=== PATIENT | female | born 1970 | race Caucasian/White ===

== ENCOUNTER 2020-10-06 12:40 | Outpatient (REF) | payer OTHER, SELFPAY ==
[2020-10-06 13:03] LABS: COVID-19 Test Negative (Negative)
== END 2020-10-06 12:41 | disposition home or self-care (01) ==
LOC: HO.EMPCOV 12:40
PROVIDERS: Visit Provider Internal Medicine
DX: Z20.828 Contact with and (suspected) exposure to other viral communicable diseases (principal)
CPT/HCPCS: 87635; C9803

== ENCOUNTER 2023-09-17 10:41 | Outpatient (AMB) | payer OTHER, SELFPAY ==
[2023-09-17 11:05] VITALS: BP 122/80; PULSE 60; O2SAT 94; BMI 24.2
--- NOTE | 2023-09-17 11:05 | MHC.PC.OV ---
Vital Signs 09/17/23 11:05 Height 5 ft 7 in Weight 154 lb 6 oz BMI 24.2 BP 122/80 Blood Pressure Location Lt brachial Position Sitting Pulse 60 Pulse Source Pulse Oximeter Pulse Oximetry (%) 94 Oxygen Delivery Method Room Air Intake Visit Reasons: L eye cataract surgery-10/02 Diagnostics Tech Required: No Accompanied by: Self / Same As Patient Allergies No Known Allergies [No Known Allergies*] Allergy (Verified 09/17/23 11:34) Medication List - Last Reconciled 09/17/23 by Anthony Gaston MD clobetasol 0.05% 1 appl topical BID clobetasol 0.05% sprays topical lorazepam Take 1 tablet 30 minutes before boarding plane (as needed for anxiety). May repeat x 1 dose after 10 to 15 minutes if needed. 2 days Tobacco use date assessed: 09/17/23 Dental Screening Dental Screen Date: 09/17/23 Did you have a dental visit in the last 12 months?: Yes Did you have a dental problem in the last 6 months where you did not have access to dental care?: No Was dental information given to patient?: Patient has dentist HPI L eye cataract surgery-10/02 HPI Details Patient comes in today at the request of Dr. Rola Harmon for a preoperative medical examination for clearance for surgery She is scheduled for cataract extraction / phaco with IOL of the left eye under MAC on 10/02/2023 Patient states that she feels okay Has been experiencing some on and off burning sensation and pain at times over the soles of both her feet lately; notes that her symptoms tend to bother her more at night time and is wondering if she is starting to develop neuropathy and if she is, would like to try to find out the possible causes Was also recently diagnosed with a recurrence of BCC on the left side of her face under her eye where she had a BCC lesion excised from there years ago Is scheduled for surgical excision of the BCC lesion again sometime later this month with dermatology She denies any headaches or dizziness Denies any chest pains, no SOB No nausea/vomiting, no abdominal pain No change in bowel habits noted [facility] Medical History (Updated 09/17/23 @ 11:55 by Anthony Gaston MD) Basal cell carcinoma, face Anxiety Psoriasis Surgical History (Updated 09/17/23 @ 11:55 by Anthony Gaston MD) Status post Mohs surgery for basal cell carcinoma History of right cataract surgery (~2018) Family History Daughter Substance abuse Mother Active asthma Father Diabetes Social History Housing: House Alcohol intake: current Alcohol intake frequency: holidays/special occasions only Patient Tobacco Use Status: Former Tobacco user Second Hand Smoke Exposure: Yes service: No Current occupational status: employed Cognitive needs: No Hearing needs: No Vision needs: Yes Questionnaire PHQ-9 Over the last 2 weeks, how often have you been bothered by any of the following problems? 1. Little interest or pleasure in doing things: several days 2. Feeling down, depressed, or hopeless: several days 3. Trouble falling or staying asleep, or sleeping too much: several days 4. Feeling tired or having little energy: several days 5. Poor appetite or overeating: several days 6. Feeling bad about yourself - or that you are a failure or have let yourself or your family down: several days 7. Trouble concentrating on things, such as reading the newspaper or watching television: not at all 8. Moving or speaking so slowly that other people could have noticed. Or the opposite - being so fidgety or restless that you have been moving around a lot more than usual: not at all 9. Thoughts that you would be better off or of hurting yourself in some way: not at all Total score: 6 Depression Screening Interpretation: Positive Depression Screening Follow-up: Existing condition, Follow-up Visit Requested and Declines treatment Depression Screening Done: Yes 64455 - PHQ-9 Billing: Yes Source: Developed by Drs. Roger Mendez, Emilee Handley, Chito Smith and colleagues, with an educational saloni from [employer]. Thrive Questionnaire Date Thrive assessed: 09/17/23 I am a: Patient What is your living situation today?: I have a steady place to live Within the past 12 months, did the food you bought not last and you didn't have the money to get more?: Never true Within the past 12 months, did you worry whether your food would run out before you got money to buy more?: Never true Do you have trouble paying for medicines?: No Do you have trouble getting transportation to medical appointments?: No Do you have trouble paying your heating and electricity bill?: No Do you have trouble taking care of your child, family member or friend?: No Do you have trouble with day-to-day activities such as bathing, preparing meals, shopping, managing finances, etc.?: No Are you currently unemployed and looking for a job?: No Are you interested in more education?: No Please select the resources that you would like help with: None Currently or been in a relationship where the following occur: no concerns reported AUDIT C Alcohol Use Questionnaire (AUDIT-C) 1. How often do you have a drink containing alcohol?: Monthly or less 2. How many drinks containing alcohol do you have on a typical day when you are drinking?: 1 or 2 3. How often do you have six or more drinks on one occasion?: Never Total Score: 1 Score Reviewed/Action Taken: Yes RAHEEM-7 AMB Questionnaire RAHEEM-7 Date RAHEEM - 7 assessed: 09/17/23 Feeling nervous, anxious, or on edge: 1 = Several days Not being able to stop or control worryin = Several days Worrying too much about different things: 1 = Several days Trouble relaxin = Several days Being so restless that it is hard to sit still: 1 = Several days Becoming easily annoyed or irritable: 1 = Several days Feeling afraid as if something awful might happen: 1 = Several days Total RAHEEM-7 score (0-4 normal; 5-9 mild; 10-14 moderate; 15-21 severe): 7 Source: Developed by Drs. Roger Mendez, Emilee Handley, Chito Smith and colleagues, with an educational saloni from [employer]. Review of Systems Const Denies chills, Reports fatigue, Denies fever(s) and Denies headache(s) Eyes Reports blurry vision (left eye) ENT Denies dysphagia, Denies dizziness, Denies otalgia, Denies headache(s), Denies neck pain, Denies odynophagia and Denies sore throat Card Denies chest pain, Denies palpitations and Denies dyspnea Resp Denies cough and Denies dyspnea GI Denies abdominal pain, Denies constipation, Denies dysphagia, Denies heartburn, Denies diarrhea, Denies nausea, Denies odynophagia and Denies vomiting Denies difficulty voiding, Denies nocturia and Denies dysuria Musc Denies back pain and Denies neck pain Skin/Breast Denies rash Neuro Denies dizziness, Denies headache(s) and Reports paresthesias (on and off, over the soles of both feet - (+) pain at times (see HPI)) Endo Reports fatigue and Denies palpitations Physical exam (Primary Care) Vital Signs: Last Vital Signs Pulse 60 09/17/23 11:05 BP 122/80 09/17/23 11:05 Pulse Ox 94 09/17/23 11:05 Oxygen Delivery Method Room Air 09/17/23 11:05 BMI result Body Mass Index 24.2 Tobacco/Smoking Status: Tobacco use Status Tobacco use date assessed 09/17/23 09/17/23 11:12 Patient Tobacco Use Status Former Tobacco user 09/17/23 11:12 PHQ-9: PHQ-9 Score PHQ-9: Total score 6 09/17/23 11:12 Depression Screening Interpretation: Positive Depression Screening Follow-up: Existing condition, Follow-up Visit Requested and Declines treatment Thrive Assessment: Date of Thrive Assessment Date Thrive assessed 09/17/23 09/17/23 11:12 Currently or been in a relationship where the following occur: no concerns reported Const General: no acute distress and alert Neck Neck: Yes no lymphadenopathy and Yes supple Resp Auscultation: clear to auscultation bilaterally, no rales and no wheezes Cardio Rate: regular rate Rhythm: regular rhythm Heart sounds: no murmurs GI Palpation (GI): Soft to palpation and nontender Auscultation: normal bowel sounds Extrem General: Yes no clubbing, cyanosis or edema Assessment and Plan Assessment & Plan (1) Preoperative examination: Code(s): Z01.818 - Encounter for other preprocedural examination Plan: Patient presents with acceptable risks for planned low cardiac risk procedure She does not have any significant pulmonary or cardiac history and aside from her anemia (for which we will recheck her CBC as it has been a few years now since she had labs done), she is relatively healthy physically and appears medically optimized for cataract surgery (2) Cataract, left eye: Code(s): H26.9 - Unspecified cataract Qualifiers: Cataract type: age-related Age-related cataract type: unspecified Qualified Code(s): H25.9 - Unspecified age-related cataract Plan: She is scheduled for cataract extraction / phaco with IOL of the left eye under MAC on 10/02/[address] Rola Harmon (3) Anemia: Code(s): D64.9 - Anemia, unspecified Qualifiers: Anemia type: unspecified type Qualified Code(s): D64.9 - Anemia, unspecified Plan: Her H/H was at 10.8/35.2 when last checked in May 2020; she also has microcytosis and hypochromia suggestive of iron-deficiency. A normal MCV rules out thalassemia trait Will have her recheck her CBC and also check her iron levels REBEL for follow up (4) Paresthesia: Code(s): R20.2 - Paresthesia of skin Plan: She also reports (+) recurrent symptoms of paresthesia in her feet lately Will send her for some additional labs for further evaluation Plan Patient presents with acceptable risks for planned low cardiac risk procedure She is being sent for some labs for follow up of some previous and recent issues but have reassured patient that these have no bearing at all on her upcoming eye surgery She is currently medically optimized and has no contraindications to undergo cataract surgery of the left eye as planned with Dr. Harmon on 10/02/2023 To return in 6 months for her annual physical examination Orders: Orders Complete Blood Count Auto Diff Today D64.9 - Anemia, unspecified, R20.2 - Paresthesia of skin IRON PROFILE Today D50.9 - Iron deficiency anemia, unspecified, D64.9 - Anemia, unspecified, R20.2 - Paresthesia of skin Comprehensive Met. Panel Today D64.9 - Anemia, unspecified, R20.2 - Paresthesia of skin Vitamin B12 and Folate Today D64.9 - Anemia, unspecified, R20.2 - Paresthesia of skin TSH reflex Free T4 Today R20.2 - Paresthesia of skin Coding Level of Care Code Est Pt Level 4 (17509) Diagnoses Preoperative examination Z01.818 Senile cataract of left eye, unspecified age-related cataract type H25.9 Cataract type: age-related Age-related cataract type: unspecified Anemia, unspecified type D64.9 Anemia type: unspecified type Paresthesia R20.2
== END 2023-09-17 11:53 | disposition home or self-care (01) ==
PROVIDERS: PCP Internal Medicine; Visit Provider Internal Medicine
DX: Z01.818 Encounter for other preprocedural examination (principal); H25.9 Unspecified age-related cataract; D64.9 Anemia, unspecified; R20.2 Paresthesia of skin
CPT/HCPCS: 99214

== ENCOUNTER 2023-09-30 10:46 | Outpatient (REF) | payer OTHER, SELFPAY ==
[2023-09-30 11:10] LABS: MANUAL DIFF FLAG NO
[2023-09-30 11:22] LABS: Basophils Absolute Auto 0.1 X10*3/uL (0.0-0.2); Basophils Percent Auto 0.6 % (0-2); Eosinophils Absolute Auto 0.2 X10*3/uL (0.0-0.4); Eosinophils Percent Auto 2.1 % (0-4); Imm Gran Abs Auto 0.03 X10*3/uL (0.00-0.03); Imm Gran Pct Auto 0.4 % (0.0-0.4); Lymphocytes Absolute Auto 1.3 X10*3/uL (1.2-4.9); Lymphocytes Percent Auto 16.2 % (20-40); Mean Corpuscular HGB Conc 31.7 g/dl (31.0-35.0); Mean Corpuscular Hemoglobin 28.2 pg (27.0-33.0); Mean Corpuscular Volume 88.9 fL (80.0-98.0); Monocytes Absolute Auto 0.5 X10*3/uL (0.1-1.2); Monocytes Percent Auto 6.1 % (2-11); Neutrophils Absolute Auto 6.2 x10*3/uL (2.0-8.3); Neutrophils Percent Auto 74.6 % (45-73); Platelet Count 222 X10*3/uL (160-400); Red Blood Count 4.61 X10*6/uL (4.20-5.50); Red Cell Distribution Width 14.2 % (11.0-16.0); White Blood Count 8.3 X10*3/uL (4.8-10.8)
[2023-09-30 11:51] LABS: Alanine Aminotransferase 16 U/L (0-31); Albumin Level 4.3 g/dL (3.5-5.0); Alkaline Phosphatase 52 U/L (39-117); Anion Gap 10 (12-20); Aspartate Amino Transferase 16 U/L (5-31); Bilirubin Total 0.4 mg/dL (0.0-1.0); Blood Urea Nitrogen 10 mg/dL (9-16); Calcium 9.7 mg/dL (8.4-10.2); Carbon Dioxide 29 mmol/L (22-29); Chloride 109 mmol/L (96-108); Estimated Glomerular Filt Rate > 60; Glucose Random 89 mg/dL (60-115); Iron 74 mcg/dL (30-160); Percent Iron Saturation 25 % (15-50); Potassium 4.3 mmol/L (3.3-5.1); Sodium 144 mmol/L (135-145); Total Iron Binding Capacity 294 mcg/dL (228-428); Total Protein 7.4 g/dL (6.5-8.0); Unsaturated Iron Binding 220 ug/dL
[2023-09-30 12:05] LABS: TSH reflex Free T4 1.16 uIU/mL (0.32-4.0)
[2023-09-30 12:16] LABS: Folate 10.3 ng/mL (> or = 4.0); Vitamin B12 341 pg/mL (200-900)
== END 2023-09-30 10:47 | disposition home or self-care (01) ==
LOC: HO.LAB 10:46
PROVIDERS: PCP Internal Medicine; Visit Provider Internal Medicine
DX: D50.9 Iron deficiency anemia, unspecified (principal); D64.9 Anemia, unspecified; R20.2 Paresthesia of skin
CPT/HCPCS: 36415; 80053; 82607; 82746; 83540; 84443; 85025

== ENCOUNTER → 2023-10-01 07:20 | Outpatient (REF) | payer OTHER, SELFPAY ==
--- NOTE | 2023-10-01 07:24 | ECG_ITS ---
Test Reason : preop Blood Pressure : / mmHG Vent. Rate : 073 BPM Atrial Rate : 073 BPM P-R Int : 122 ms QRS Dur : 074 ms QT Int : 404 ms P-R-T Axes : 031 063 028 degrees QTc Int : 445 ms Sinus rhythm with frequent Premature ventricular complexes Abnormal ECG When compared with ECG of 25-MAR-2020 19:40, Premature ventricular complexes are now Present Nonspecific T wave abnormality no longer evident in Lateral leads Referred By: Anthony Gaston Electronically Signed By:MERRILL NAQVI MD
== END ==
LOC: HO.CARD 07:20
PROVIDERS: PCP Internal Medicine; Visit Provider Internal Medicine
DX: Z01.818 Encounter for other preprocedural examination (principal); R06.00 Dyspnea, unspecified
CPT/HCPCS: 93005

== ENCOUNTER 2024-03-23 10:13 | Outpatient (AMB) | payer OTHER, SELFPAY ==
[2024-03-23 10:20] VITALS: BP 108/68; PULSE 77; O2SAT 98; BMI 24.7
--- NOTE | 2024-03-23 10:20 | A.OFFPC_ITS ---
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 Allergies No Known Allergies [No Known Allergies*] Allergy (Verified 03/23/24 11:06) Medication List - Last Reconciled 03/23/24 by Anthony Gaston MD clobetasol 0.05% 1 appl topical BID clobetasol 0.05% sprays topical Tobacco use date assessed: 03/23/24 Dental Screening Dental Screen Date: 03/23/24 Did you have a dental visit in the last 12 months?: Yes Did you have a dental problem in the last 6 months where you did not have access to dental care?: No Was dental information given to patient?: Patient has dentist HPI pe HPI Details Patient comes in today for her annual physical examination States that she has been experiencing diffuse joint pains for a few months now States that her joints involved include her knees, feet, hands, hips and also her lower back and she is concerned that she may be developing arthritis She relates no Hx of injuries or trauma that may be contributing to her joint pains She is currently babysitting 2 small grandchildren (one being an infant) for her daughter, who works full-time - states that she herself has been out of work for a couple of months now States that she feels okay otherwise She denies any headaches or dizziness Denies any exertional chest pains, no SOB but relates that she gets some recurrent sharp pains every now and then over her left lower rib cage area, especially when she takes deep breaths Does not recall any recent injury or trauma to her left rib or torso No nausea/vomiting, no abdominal pain No change in bowel habits noted She denies any acute urinary symptoms She has never had a screening colonoscopy done in the past and is agreeable to be referred now for one She also has not had annual mammogram done in about 10 years and has not been back to see her sagger preparer at [facility] in a few years [facility] Medical History Basal cell carcinoma, face Anxiety Psoriasis Surgical History Status post Mohs surgery for basal cell carcinoma History of right cataract surgery (~2018) Family History Daughter Substance abuse Mother Active asthma Father Diabetes Social History Housing: House Alcohol intake: current Alcohol intake frequency: holidays/special occasions only Patient Tobacco Use Status: Former Tobacco user Second Hand Smoke Exposure: Yes service: No Current occupational status: employed Cognitive needs: No Hearing needs: No Vision needs: Yes Female Reproductive History Menstrual Age of menopause: 53 Date of Mammogram: 03/09/13 Questionnaire PHQ-9 Over the last 2 weeks, how often have you been bothered by any of the following problems? 1. Little interest or pleasure in doing things: not at all 2. Feeling down, depressed, or hopeless: not at all 3. Trouble falling or staying asleep, or sleeping too much: not at all 4. Feeling tired or having little energy: not at all 5. Poor appetite or overeating: not at all 6. Feeling bad about yourself - or that you are a failure or have let yourself or your family down: not at all 7. Trouble concentrating on things, such as reading the newspaper or watching television: not at all 8. Moving or speaking so slowly that other people could have noticed. Or the opposite - being so fidgety or restless that you have been moving around a lot more than usual: not at all 9. Thoughts that you would be better off or of hurting yourself in some way: not at all Total score: 0 Depression Screening Interpretation: Negative Depression Screening Done: Yes 65195 - PHQ-9 Billing: Yes Source: Developed by Drs. Roger Mendez, Emilee Handley, Chito Smith and colleagues, with an educational saloni from [email or web address]. Thrive Questionnaire Date Thrive assessed: 03/23/24 I am a: Patient What is your living situation today?: I have a steady place to live Within the past 12 months, did the food you bought not last and you didn't have the money to get more?: Never true Within the past 12 months, did you worry whether your food would run out before you got money to buy more?: Never true Do you have trouble paying for medicines?: No Do you have trouble getting transportation to medical appointments?: No Do you have trouble paying your heating and electricity bill?: No Do you have trouble taking care of your child, family member or friend?: No Do you have trouble with day-to-day activities such as bathing, preparing meals, shopping, managing finances, etc.?: No Are you currently unemployed and looking for a job?: No Are you interested in more education?: No Please select the resources that you would like help with: None Currently or been in a relationship where the following occur: no concerns reported THRIVE Score: 0 AUDIT C Alcohol Use Questionnaire (AUDIT-C) 1. How often do you have a drink containing alcohol?: Monthly or less 2. How many drinks containing alcohol do you have on a typical day when you are drinking?: 1 or 2 3. How often do you have six or more drinks on one occasion?: Never Total Score: 1 Score Reviewed/Action Taken: Yes RAHEEM-7 AMB Questionnaire RAHEEM-7 Date RAHEEM - 7 assessed: 03/23/24 Feeling nervous, anxious, or on edge: 0 = Not at all Not being able to stop or control worryin = Not at all Worrying too much about different things: 0 = Not at all Trouble relaxin = Not at all Being so restless that it is hard to sit still: 0 = Not at all Becoming easily annoyed or irritable: 0 = Not at all Feeling afraid as if something awful might happen: 0 = Not at all Total RAHEEM-7 score (0-4 normal; 5-9 mild; 10-14 moderate; 15-21 severe): 0 Source: Developed by Drs. Roger Mendez, Emilee Handley, Chito Smith and colleagues, with an educational saloni from [email or web address]. RAHEEM-7 Assessment Billing RAHEEM-7 Assessment Tool: RAHEEM-7 Assessment 85306 Review of Systems Const Denies chills, Reports fatigue (helps babysit 2 small granddaughters), Denies fever(s), Denies headache(s) and Denies malaise Eyes Denies blurry vision, Denies change in vision, Denies irritation and Denies itchy eyes ENT Denies dysphagia, Denies dizziness, Denies otalgia, Denies headache(s), Denies nasal congestion, Denies neck pain, Denies odynophagia, Denies sinus pain and Denies sore throat Card Denies chest pain, Denies rapid heart rate, Denies irregular heart rhythm, Denies palpitations and Denies dyspnea Resp Details: on and off left lower rib pain - see HPI Denies chest congestion, Denies cough, Denies dyspnea and Denies wheezing GI Denies abdominal pain, Denies bloating, Denies constipation, Denies dysphagia, Denies heartburn, Denies diarrhea, Denies nausea, Denies odynophagia and Denies vomiting Denies hematuria, Denies urinary frequency, Denies dysuria, Denies urinary incontinence and Denies urinary urgency Musc Reports as per HPI, Denies back pain, Reports arthralgias (involving multiple joints - see HPI), Denies joint swelling, Denies muscle weakness and Denies neck pain Skin/Breast Denies breast pain, Denies breast mass, Denies change in pigmentation, Denies lesions, Denies rash and Denies unusual bruising Neuro Denies dizziness, Denies headache(s) and Denies paresthesias Psych Denies anxiety and Denies depression Endo Reports fatigue (helps babysit 2 small granddaughters) and Denies palpitations Ayedn/Lymph Denies easy bruising Aller/Immun Denies itchy eyes and Denies wheezing Physical exam (Primary Care) Vital Signs: Last Vital Signs Pulse 77 03/23/24 10:20 BP 108/68 03/23/24 10:20 Pulse Ox 98 03/23/24 10:20 Oxygen Delivery Method Room Air 03/23/24 10:20 BMI result Body Mass Index 24.7 Tobacco/Smoking Status: Tobacco use Status Tobacco use date assessed 03/23/24 03/23/24 10:28 Patient Tobacco Use Status Former Tobacco user 03/23/24 10:20 PHQ-9: PHQ-9 Score PHQ-9: Total score 0 03/23/24 10:28 Depression Screening Interpretation: Negative Thrive Assessment: Date of Thrive Assessment Date Thrive assessed 03/23/24 03/23/24 10:28 Currently or been in a relationship where the following occur: no concerns reported Const General: no acute distress, alert and awake Orientation/consciousness: patient oriented x3 HENMT Head: Yes normocephalic and Yes atraumatic Ears: external ears normal, TM's normal bilaterally and EAC's normal General nose exam: No nasal discharge present Face and sinus: Yes normal facial exam and Yes sinuses nontender Teeth and gingiva: dentition normal Throat: Yes posterior oropharynx normal and Yes tonsils normal (no TP congestion) Eyes Eyelids: Yes eyelids normal Conjunctivae: conjunctivae normal Pupils: Equal, round and reactive pupils present EOM: EOMs intact bilaterally Neck Neck: Yes no lymphadenopathy and Yes supple Thyroid: Thyroid normal Chest Other: (+) mild tenderness on deep palpation over the left lower ribs / chest wall along the left lateral axillary line area Resp Auscultation: clear to auscultation bilaterally, no rales and no wheezes Cardio Rate: regular rate Rhythm: regular rhythm Heart sounds: no murmurs GI Palpation (GI): Soft to palpation, nontender and No hepatosplenomegaly present Auscultation: normal bowel sounds General: Yes no CVA tenderness Back/Spine/Pelvis Back: no CVA tenderness Thoracic/Lumbar Spine: paraspinal muscle tenderness (mild) bilaterally in the mid lumbar and in the lower lumbar and lumbar spinal tenderness (mild) Sacroiliac joints: bilaterally nontender Skin Lesions: no lesions Rashes: no rashes Neuro General: patient oriented x3, moves all extremities, no focal motor deficits and CN's II-XI intact bilaterally Cranial nerves: Yes Equal, round and reactive pupils present Cognition (Neuro): normal cognition Gait exam (Neuro): Normal gait present Extrem General: Yes no clubbing, cyanosis or edema Right upper extremity: normal to inspection and full ROM Left upper extremity: normal to inspection and full ROM Right lower extremity: normal to inspection and full ROM Left lower extremity: normal to inspection and full ROM Assessment and Plan Assessment & Plan (1) Annual physical exam: Code(s): Z00.00 - Encounter for general adult medical examination without abnormal findings Plan: Check labs She has never had a screening mammogram done and also has not had any of her breast and cervical cancer screenings done in a few years now and is agreeable to start working on these again (2) Arthralgia: Code(s): M25.50 - Pain in unspecified joint Qualifiers: Joint pain location: unspecified Qualified Code(s): M25.50 - Pain in unspecified joint Plan: Discussed that her symptoms are likely due, in large part, to her daily activities recently which includes full-time babysitting of 2 small grandchildren but will go ahead and send her for some labs for arthralgia work ups - advised that these are mostly to screen for the possibility of some inflammatory joint conditions/disease that may be going on and if all of these come back normal, then there is really not much else we can add in terms of recommendations other than she has to try scaling back what she is doing on a daily basis, which understandably is easier said than done (3) Psoriasis: Code(s): L40.9 - Psoriasis, unspecified Plan: Continue Clobetasol 0.05% topical spray apply BID PRN Follow up with [facility] as scheduled (4) Anxiety: Code(s): F41.9 - Anxiety disorder, unspecified Plan: Patient was been experiencing a lot of stress and anxiety about a year or so ago due to her daughter's complicated first and subsequent is sues but this has improved a lot since Relates that staying busy helps her deal better with her anxiety She is currently still following up and seeing a therapist, which she states helps a lot - she still prefers not to start taking any Rx for anxiety at this time (5) Colon cancer screening: Code(s): Z12.11 - Encounter for screening for malignant neoplasm of colon Plan: Will refer her to GI for a screening colonoscopy - this will be her first colonoscopy (6) Breast cancer screening by mammogram: Code(s): Z12.31 - Encounter for screening mammogram for malignant neoplasm of breast Plan: She has not had a mammogram done since 2014 Will send her for annual mammogram [facility] (7) Cervical cancer screening: Code(s): Z12.4 - Encounter for screening for malignant neoplasm of cervix Plan: Patient goes to her sagger preparer at [facility] but has not seen them nor had a gynecology exam done in a few years now She is encouraged to try to contact them and schedule her yearly exam with them REBEL Plan To return in 1 year for her next annual physical examination Orders: Orders MM tomosynthesis screening BI Today Z12.31 - Encounter for screening mammogram for malignant neoplasm of breast Complete Blood Count Auto Diff Today D64.9 - Anemia, unspecified, M25.50 - Pain in unspecified joint, Z00.00 - Encounter for general adult medical examination without abnormal findings Lipid Panel Today E78.00 - Pure hypercholesterolemia, unspecified, M25.50 - Pain in unspecified joint, Z00.00 - Encounter for general adult medical examination without abnormal findings TSH reflex Free T4 Today E78.00 - Pure hypercholesterolemia, unspecified, M 25.50 - Pain in unspecified joint, Z00.00 - Encounter for general adult medical examination without abnormal findings UA CC w/rflx Micro + Cult Today M25.50 - Pain in unspecified joint, R30.0 - Dysuria, Z00.00 - Encounter for general adult medical examination without abnormal findings Vitamin D 25-OH Total Today E55.9 - Vitamin D deficiency, unspecified, M25.50 - Pain in unspecified joint, Z00.00 - Encounter for general adult medical examination without abnormal findings Erythrocyte Sedimentation Rate Today M25.50 - Pain in unspecified joint, M79.7 - Fibromyalgia, Z00.00 - Encounter for general adult medical examination without abnormal findings PATRICIA Reflex Titer and Pattern Today M25.50 - Pain in unspecified joint, Z00.00 - Encounter for general adult medical examination without abnormal findings Comprehensive [place]. Panel Fast Today E78.00 - Pure hypercholesterolemia, unspecified, M25.50 - Pain in unspecified joint, Z00.00 - Encounter for general adult medical examination without abnormal findings C Reactive Protein Today M25.50 - Pain in unspecified joint, Z00.00 - Encounter for general adult medical examination without abnormal findings Rheumatoid Factor Today M25.50 - Pain in unspecified joint, Z00.00 - Encounter for general adult medical examination without abnormal findings Lyme IgG/IgM w/reflex to WB Today M25.50 - Pain in unspecified joint Referrals Gastroenterology Referral Z12.11 - Encounter for screening for malignant neoplasm of colon Coding Level of Care Code Est Pt Prev Care 40-64y(41701) Diagnoses Annual physical exam Z00.00 Arthralgia, unspecified joint M25.50 Joint pain location: unspecified Psoriasis L40.9 Anxiety F41.9 Colon cancer screening Z12.11 Breast cancer screening by mammogram Z12.31 Cervical cancer screening Z12.4 Additional Codes RAHEEM-7 Assessment Billing - RAHEEM-7 Assessment Tool: RAHEEM-7 Assessment 71065 ([id number])
== END 2024-03-23 11:22 | disposition home or self-care (01) ==
PROVIDERS: PCP Internal Medicine; Visit Provider Internal Medicine
DX: Z00.00 Encounter for general adult medical examination without abnormal findings (principal); L40.9 Psoriasis, unspecified; F41.9 Anxiety disorder, unspecified
CPT/HCPCS: 99396

== ENCOUNTER 2024-05-05 15:04 | Outpatient (REF) | payer OTHER, SELFPAY | END 2024-05-05 15:05 | disposition home or self-care (01) | LOC: HO.MAMMO 15:04 | PROVIDERS: PCP Internal Medicine; Visit Provider Internal Medicine | DX: Z12.31 Encounter for screening mammogram for malignant neoplasm of breast (principal) | CPT/HCPCS: 77063; 77067 ==

== ENCOUNTER → 2024-05-05 15:15 | Outpatient (BNV) | payer OTHER, SELFPAY | PROVIDERS: PCP Internal Medicine; Visit Provider Radiology Diagnostic Radiology | DX: Z12.31 Encounter for screening mammogram for malignant neoplasm of breast (principal) | CPT/HCPCS: 77063; 77067 ==

== ENCOUNTER 2024-06-23 05:36 | Emergency (ER) | payer OTHER, SELFPAY ==
[2024-06-23 05:39] VITALS: BP 106/45; PULSE 73; RESP 16; TEMP 36.5; O2SAT 99; BMI 25.2
[2024-06-23] MEDS: methylPREDNISolone Sod Succ 125 MG/2 ML VIAL IVPUSH (05:52)
[2024-06-23] MEDS: diphenhydrAMINE HCL 50 MG/ML VIAL IVPUSH (05:52)
[2024-06-23 06:00] VITALS: RESP 16
--- NOTE | 2024-06-23 06:29 | ED.ALLEREA ---
HPI - Allergic Reaction General Chief complaint: Allergic Reaction Stated complaint: allergic reaction Time Seen by Provider: 06/23/24 05:38 Source: patient Mode of arrival: ambulatory Limitations: no limitations History of Present Illness ED Provider: Dr. Flores HPI narrative: Patient was away on vacation, had shellfish, days later she developed a diffuse rash. She was seen in another ED and was given epi, decadron and discharged home. Tonight (2 days later) she is developing hives again with lip swelling. No diff breathing, no throat swelling MD complaint: allergic reaction and hives Onset (ago): minute(s) Symptoms: rash, facial swelling and lip swelling Severity: moderate Related Data Home Medications ?Medication ?Instructions ?Recorded ?Confirmed clobetasol 0.05 % topical spray spray topical 10/16/21 03/23/24 Previous Rx's ?Medication ?Instructions ?Recorded diphenhydramine HCl 25 mg capsule 25 mg PO TID PRN allergic reaction 06/23/24 (Benadryl) #30 caps prednisone 20 mg tablet 60 mg (3 x 20 mg) PO DAILY #12 tabs 06/23/24 Allergies Allergy/AdvReac Type Severity Reaction Status Date / Time No Known Allergies Allergy Verified 06/23/24 05:42 [No Known Allergies*] Review of Systems Review of Systems: Yes all other systems are reviewed and are negative Neurologic: Denies Sensory deficit (Neuro) PMFSH Past Medical History Medical History Basal cell carcinoma, face Anxiety Psoriasis Surgical History Status post Mohs surgery for basal cell carcinoma History of right cataract surgery (~2017) Family History Family History Daughter Substance abuse Mother Active asthma Father Diabetes Social History Social History Housing: House Alcohol intake: current Alcohol intake frequency: does not drink Patient Tobacco Use Status: Former Tobacco user Smoked in Last 30 Days: No Second Hand Smoke Exposure: Yes Use of substances other than those prescribed or required for medical reasons: No Advance Directives: No Advance Directives Information Provided: Yes Do you have a plan to hurt others: No Plan Patient : No service: No Current occupational status: employed Cognitive needs: No Hearing needs: No Vision needs: Yes Physical Exam ED Vital Signs: Vital Signs - 24 hr 06/23/24 05:39 06/23/24 06:00 Temperature 97.7 F Pulse Rate 73 Respiratory Rate 16 16 Blood Pressure 106/45 L Pulse Oximetry 99 Oxygen Delivery Method Room Air BMI result Body Mass Index 25.2 Const Other: female with hives all over body Nutritional Appearance: average body habitus Orientation/consciousness: oriented to person and patient oriented x3 Limitations: no limitations HENMT Other: upper lip and face swelling, tongue no swelling, uvula no swelling Head: Yes normal to inspection Ears: external ears normal General nose exam: Normal external nose present Mouth: Normal oral and palatal mucosa present and oropharynx normal Throat: Yes posterior oropharynx normal Eyes General: appearance normal, both eyes and all related structures Neck Neck: Yes normal visual inspection Chest Chest palpation & inspection: normal inspection of the chest Resp Auscultation: clear to auscultation bilaterally Cardio Jugular venous distension: no JVD Rate: regular rate Rhythm: regular rhythm Heart sounds: S1 normal heart sound present and S2 normal heart sound present GI Inspection: Yes normal to inspection Palpation (GI): Soft to palpation, nontender and No hepatosplenomegaly present Auscultation: normal bowel sounds General: Yes no CVA tenderness Back/Spine/Pelvis Back: no CVA tenderness Skin General skin exam: no rashes or lesions noted Neuro General: oriented to person and patient oriented x3 Cranial nerves: Yes CN's II-XII intact bilaterally Motor exam (neuro): 5/5 motor strength present throughout Sensory Exam: No Sensory deficit (Neuro) Extrem General: Yes normal to inspection Psych Appearance: grossly normal Course Reevaluation(s) Reevaluation #1: I spent 40 minutes of critical care, with interventions, assessments, speaking to patient, consultants, and family. Time: 06:34 Reevaluation #2: physician observation started now, reason is the patient needs time to see if her allergic reaction improves Time: 06:38 Medications Administered Discontinued Medications Generic Name Dose Route Start Last Admin Trade Name Freq PRN Reason Stop Dose Admin Diphenhydramine HCl 50 mg 06/23/24 05:42 06/23/24 05:52 Diphenhydramine Hcl 50 Mg/Ml Vial IVPUSH 06/23/24 05:43 50 mg ONCE ONE Administration Methylprednisolone Sodium Succinate 125 mg 06/23/24 05:42 06/23/24 05:52 Methylprednisolone Sod Succ 125 Mg/2 Ml Vial IVPUSH 06/23/24 05:43 125 mg ONCE ONE Administration Medical Decision Making Differential Diagnosis Differential Diagnoses: The differential diagnosis associated with the presentation includes (allergic reaction, anapylaxis) Admission/Observation Consideration of admission/observation: Escalation of care including admission/observation considered (upon arrival patient was considered for admission) Discharge Plan Discharge Clinical Impression: Allergic reaction Patient Disposition: Still a Patient Instructions: General Allergic Reaction (ED) Prescriptions: New diphenhydramine HCl [Benadryl] 25 mg capsule 25 mg PO TID PRN (Reason: allergic reaction) Qty: 30 0RF prednisone 20 mg tablet 60 mg PO DAILY Qty: 12 0RF No Action clobetasol 0.05 % spray,non-aerosol topical Print Language: Setswana
[2024-06-23 08:08] VITALS: BP 103/47; PULSE 58; RESP 20; TEMP 36.6; O2SAT 99
== END 2024-06-23 08:10 | disposition home or self-care (01) ==
PROVIDERS: Emergency Provider Emergency Medicine; PCP Internal Medicine
DX: L50.0 Allergic urticaria (principal); K13.0 Diseases of lips
CPT/HCPCS: 96374; 96375; 99284; J1200; J2919

== ENCOUNTER 2025-03-24 10:19 | Outpatient (AMB) | payer OTHER, SELFPAY ==
--- NOTE | 2025-03-24 10:24 | MHC.PC.OV ---
Vital Signs 03/24/25 10:25 Height 5 ft 7 in Weight 159 lb 2 oz BMI 24.9 BP 100/62 Blood Pressure Location Lt brachial Position Sitting Pulse 60 Pulse Source Pulse Oximeter Pulse Oximetry (%) 98 Oxygen Delivery Method Room Air Intake Visit Reasons: ANNUAL Rating Officer Required: No Accompanied by: Self / Same As Patient Allergies No Known Allergies [No Known Allergies*] Allergy (Verified 03/24/25 10:41) Medication List - Last Reconciled 03/24/25 by Anthony Gaston MD clobetasol 0.05% sprays topical Tobacco use date assessed: 03/24/25 Dental Screening Dental Screen Date: 03/24/25 Did you have a dental visit in the last 12 months?: No Did you have a dental problem in the last 6 months where you did not have access to dental care?: No Was dental information given to patient?: Patient has dentist HPI ANNUAL HPI Details Patient comes in today for her annual physical examination States that she feels okay but has a few issues that she would like to have addressed States that she had a sty on her left upper eyelid a few months ago but it seems to have persisted for the past few months although the lesion has gotten much smaller and there is currently no pain associated with it Patient states that the lesion on her left upper eyelid has never completely cleared up and she is wondering if she can have it surgically removed as she does not like the way it looks She has also been experiencing increased left knee pain, mostly over the medial aspect of the knee, for a few months now and she is concerned about the possibility of a ligament injury in her knee She does not really recall any recent injury or trauma to her knee Adds that she has a few toenails that are thick and disfigured due to fungal infection and would like to know the best way to get her toenails cleared up completely She denies any headaches or dizziness Denies any chest pains, no SOB No nausea/vomiting, no abdominal pain No change in bowel habits noted She denies any acute urinary symptoms Her annual mammogram was last done on 05/05/2024; her next one is scheduled for 05/11/2025 She goes for her yearly pap smear and gynecology exam at [facility] and she has not had these done in a few years - states that she will call to schedule appt with her integrated circuit design engineer REBEL She has not had a screening colonoscopy done yet in the past States that she has been in menopause for the past 2 yrs [facility] Medical History Basal cell carcinoma, face Anxiety Psoriasis Surgical History Status post Mohs surgery for basal cell carcinoma History of right cataract surgery (~2018) Family History Daughter Substance abuse Mother Active asthma Father Diabetes Social History Housing: House Alcohol intake: current Alcohol intake frequency: does not drink Patient Tobacco Use Status: Former Tobacco user e-Cigarette/Vaping Use: Never Used Second Hand Smoke Exposure: Yes service: No Current occupational status: employed Cognitive needs: No Hearing needs: No Vision needs: Yes Questionnaire PHQ-9 Over the last 2 weeks, how often have you been bothered by any of the following problems? 1. Little interest or pleasure in doing things: not at all 2. Feeling down, depressed, or hopeless: not at all 3. Trouble falling or staying asleep, or sleeping too much: not at all 4. Feeling tired or having little energy: not at all 5. Poor appetite or overeating: not at all 6. Feeling bad about yourself - or that you are a failure or have let yourself or your family down: not at all 7. Trouble concentrating on things, such as reading the newspaper or watching television: not at all 8. Moving or speaking so slowly that other people could have noticed. Or the opposite - being so fidgety or restless that you have been moving around a lot more than usual: not at all 9. Thoughts that you would be better off or of hurting yourself in some way: not at all Total score: 0 Depression Screening Interpretation: Negative Depression Screening Done: Yes 44934 - PHQ-9 Billing: Yes Source: Developed by Drs. Roger Mendez, Emilee Handley, Chito Smith and colleagues, with an educational saloni from [employer]. Thrive Questionnaire Date Thrive assessed: 03/24/25 I am a: Patient What is your living situation today?: I have a steady place to live Within the past 12 months, did the food you bought not last and you didn't have the money to get more?: Never true Within the past 12 months, did you worry whether your food would run out before you got money to buy more?: Never true Do you have trouble paying for medicines?: No Do you have trouble getting transportation to medical appointments?: No Do you have trouble paying your heating and electricity bill?: No Do you have trouble taking care of your child, family member or friend?: No Do you have trouble with day-to-day activities such as bathing, preparing meals, shopping, managing finances, etc.?: No Are you currently unemployed and looking for a job?: No Are you interested in more education?: No Please select the resources that you would like help with: None Currently or been in a relationship where the following occur: No concerns reported THRIVE Score: 0 AUDIT C Alcohol Use Questionnaire (AUDIT-C) 1. How often do you have a drink containing alcohol?: Monthly or less 2. How many drinks containing alcohol do you have on a typical day when you are drinking?: 1 or 2 3. How often do you have six or more drinks on one occasion?: Never Total Score: 1 Score Reviewed/Action Taken: Yes RAHEEM-7 AMB Questionnaire RAHEEM-7 Date RAHEEM - 7 assessed: 03/24/25 Feeling nervous, anxious, or on edge: 0 = Not at all Not being able to stop or control worryin = Not at all Worrying too much about different things: 0 = Not at all Trouble relaxin = Not at all Being so restless that it is hard to sit still: 0 = Not at all Becoming easily annoyed or irritable: 0 = Not at all Feeling afraid as if something awful might happen: 0 = Not at all Total RAHEEM-7 score (0-4 normal; 5-9 mild; 10-14 moderate; 15-21 severe): 0 Source: Developed by Drs. Roger Mendez, Emilee Handley, Chito Smith and colleagues, with an educational saloni from [employer]. RAHEEM-7 Assessment Billing RAHEEM-7 Assessment Tool: RAHEEM-7 Assessment 80288 Review of Systems Const Denies chills, Denies fatigue, Denies fever(s), Denies headache(s) and Denies malaise Eyes Details: (+) persistent sty lesion on the left upper eyelid Denies blurry vision, Denies change in vision, Denies irritation and Denies itchy eyes ENT Denies dysphagia, Denies dizziness, Denies otalgia, Denies headache(s), Denies nasal congestion, Denies neck pain, Denies odynophagia, Denies sinus pain and Denies sore throat Card Denies chest pain, Denies rapid heart rate, Denies irregular heart rhythm, Denies palpitations and Denies dyspnea Resp Denies chest congestion, Denies cough, Denies dyspnea and Denies wheezing GI Denies abdominal pain, Denies bloating, Denies constipation, Denies dysphagia, Denies heartburn, Denies diarrhea, Denies nausea, Denies odynophagia and Denies vomiting Denies hematuria, Denies urinary frequency, Denies dysuria, Denies urinary incontinence and Denies urinary urgency Musc Denies back pain, Reports arthralgias (over the medial aspect of the left knee), Denies joint swelling, Denies muscle weakness and Denies neck pain Skin/Breast Details: (+) thick and disfigured toenails over a couple of toes on both feet Denies breast pain, Denies breast mass, Denies change in pigmentation, Denies lesions, Denies rash and Denies unusual bruising Neuro Denies dizziness, Denies headache(s) and Denies paresthesias Psych Denies anxiety and Denies depression Endo Denies fatigue and Denies palpitations Ayden/Lymph Denies easy bruising Aller/Immun Denies itchy eyes and Denies wheezing Physical exam (Primary Care) Vital Signs: Last Vital Signs Pulse 60 03/24/25 10:25 BP 100/62 03/24/25 10:25 Pulse Ox 98 03/24/25 10:25 Oxygen Delivery Method Room Air 03/24/25 10:25 BMI result Body Mass Index 24.9 Tobacco/Smoking Status: Tobacco use Status Tobacco use date assessed 03/24/25 03/24/25 10:30 Patient Tobacco Use Status Former Tobacco user 03/24/25 10:30 e-Cigarette/Vaping Use Never Used 03/24/25 10:30 PHQ-9: PHQ-9 Score PHQ-9: Total score 0 03/24/25 10:59 Depression Screening Interpretation: Negative Thrive Assessment: Date of Thrive Assessment Date Thrive assessed 03/24/25 03/24/25 10:30 Currently or been in a relationship where the following occur: No concerns reported Const General: no acute distress, alert and awake Orientation/consciousness: patient oriented x3 [facility] Head: Yes normocephalic and Yes atraumatic Ears: external ears normal, TM's normal bilaterally and EAC's normal General nose exam: No nasal discharge present Face and sinus: Yes normal facial exam and Yes sinuses nontender Teeth and gingiva: dentition normal Throat: Yes posterior oropharynx normal and Yes tonsils normal (no TP congestion) Eyes Other: (+) persistent non-tender, small nodular lesion on the left upper eyelid Eyelids: Yes eyelids normal Conjunctivae: conjunctivae normal Pupils: Equal, round and reactive pupils present EOM: EOMs intact bilaterally Neck Neck: Yes no lymphadenopathy and Yes supple Thyroid: Thyroid normal Resp Auscultation: clear to auscultation bilaterally, no rales and no wheezes Cardio Rate: regular rate Rhythm: regular rhythm Heart sounds: no murmurs GI Palpation (GI): Soft to palpation, nontender and No hepatosplenomegaly present Auscultation: normal bowel sounds General: Yes no CVA tenderness Back/Spine/Pelvis Back: no CVA tenderness Thoracic/Lumbar Spine: No lumbar spinal tenderness Skin Lesions: no lesions Rashes: no rashes Neuro General: patient oriented x3, moves all extremities, no focal motor deficits and CN's II-XI intact bilaterally Cranial nerves: Yes Equal, round and reactive pupils present Cognition (Neuro): normal cognition Gait exam (Neuro): Normal gait present Extrem Other: (+) thickened and disfigured/onycholytic toenails on a few toes on both feet General: Yes no clubbing, cyanosis or edema Left lower extremity: knee Details: tenderness Location: of the medial joint line; no swelling Coding Level of Care Code Est Pt Prev Care 40-64y(94712) Diagnoses Annual physical exam Z00.00 Psoriasis L40.9 Lesion of left upper eyelid H02.9 Left knee pain, unspecified chronicity M25.562 Chronicity: unspecified Onychomycosis of toenail B35.1 Anxiety F41.9 Colon cancer screening Z12.11 Additional Codes RAHEEM-7 Assessment Billing - RAHEEM-7 Assessment Tool: RAHEEM-7 Assessment 90481 ([id number]) PHQ-9 - 80988 - PHQ-9 Billing: Yes ([id number]) Assessment & Plan Assessment & Plan (1) Annual physical exam: Code(s): Z00.00 - Encounter for general adult medical examination without abnormal findings Category: Medical Plan: Check labs She is up-to-date with her annual breast cancer screening She is overdue for her yearly gynecology exam and pap smear and will be calling her integrated circuit design engineer's office to schedule her appointment REBEL She also has not had her colon cancer screening done yet and she is advised that she is technically over 10 years overdue She was referred last year but she never had this scheduled at all (2) Psoriasis: Code(s): L40.9 - Psoriasis, unspecified Category: Medical Plan: Continue Clobetasol 0.05% topical spray apply BID PRN Follow up with [facility] as scheduled (3) Lesion of left upper eyelid: Code(s): H02.9 - Unspecified disorder of eyelid Category: Medical Plan: Will start her again on a trial of Erythromycin eye ointment to apply 0.5 inches to her left upper eyelid TID x 7 days Advised that if this does not help clear up the nodular lesion on her left upper eyelid and she still wants to try to have it removed, then she will likely have to see ophthalmology for this (4) Left knee pain: Code(s): M25.562 - Pain in left knee Category: Medical Qualifiers: Chronicity: unspecified Qualified Code(s): M25.562 - Pain in left knee Plan: Patient is advised that we can send her for left knee x-rays for further evaluation States that she is already scheduled to be seen by [facility] for this (5) Onychomycosis of toenail: Code(s): B35.1 - Tinea unguium Category: Medical Plan: Will refer her to podiatry for further management of her toenail fungal infection/infestation (6) Anxiety: Code(s): F41.9 - Anxiety disorder, unspecified Category: Medical Plan: She is currently still following up with her therapist regularly, which she states helps a lot - she still prefers not to start taking any Rx for anxiety at this time (7) Colon cancer screening: Code(s): Z12.11 - Encounter for screening for malignant neoplasm of colon Category: Medical Plan: Will refer patient AGAIN to GI for her screening colonoscopy Plan To return in 1 year for her next annual physical examination Orders: Orders Complete Blood Count Auto Diff 03/24/25 D64.9 - Anemia, unspecified, Z00.00 - Encounter for general adult medical examination without abnormal findings Lipid Panel 03/24/25 E78.00 - Pure hypercholesterolemia, unspecified, Z00.00 - Encounter for general adult medical examination without abnormal findings TSH reflex Free T4 03/24/25 E78.00 - Pure hypercholesterolemia, unspecified, Z00.00 - Encounter for general adult medical examination without abnormal findings Comprehensive [place]. Panel Fast 03/24/25 E78.00 - Pure hypercholesterolemia, unspecified, Z00.00 - Encounter for general adult medical examination without abnormal findings UA CC w/rflx Micro + Cult 03/24/25 R30.0 - Dysuria, Z00.00 - Encounter for general adult medical examination without abnormal findings Vitamin D 25-OH Total 03/24/25 E55.9 - Vitamin D deficiency, unspecified, Z00.00 - Encounter for general adult medical examination without abnormal findings Referrals Gastroenterology Referral Z12.11 - Encounter for screening for malignant neoplasm of colon Podiatry Referral B35.1 - Tinea unguium Medications: New erythromycin 0.5 inches ophthalmic (eye) TID 7 days 3.5 grams 0RF Changed From clobetasol 0.05% topical To clobetasol 0.05% topical PRN
[2025-03-24 10:25] VITALS: BP 100/62; PULSE 60; O2SAT 98; BMI 24.9
== END 2025-03-24 11:01 | disposition home or self-care (01) ==
LOC: HO.HMCH 10:20
PROVIDERS: PCP Internal Medicine; Visit Provider Internal Medicine
DX: Z00.00 Encounter for general adult medical examination without abnormal findings (principal); L40.9 Psoriasis, unspecified; H02.9 Unspecified disorder of eyelid; M25.562 Pain in left knee; B35.1 Tinea unguium; F41.9 Anxiety disorder, unspecified; Z12.11 Encounter for screening for malignant neoplasm of colon

== ENCOUNTER → 2025-03-24 10:19 | Outpatient (BNVA) | payer OTHER, SELFPAY | PROVIDERS: PCP Internal Medicine; Visit Provider Internal Medicine | DX: Z00.00 Encounter for general adult medical examination without abnormal findings (principal); L40.9 Psoriasis, unspecified; H02.9 Unspecified disorder of eyelid; M25.562 Pain in left knee; B35.1 Tinea unguium; F41.9 Anxiety disorder, unspecified | CPT/HCPCS: 96127 ==

== ENCOUNTER 2025-05-16 23:52 | Emergency (ER) | payer OTHER, SELFPAY ==
[2025-05-16 23:54] VITALS: BP 112/43; PULSE 78; RESP 16; TEMP 36.6; O2SAT 98; BMI 24.4
[2025-05-17 00:29] VITALS: BP 112/43; PULSE 78; RESP 16; TEMP 36.6; O2SAT 98
--- NOTE | 2025-05-17 00:36 | ED_ITS ---
HPI - Skin/Abscess/Foreign Bdy General Chief complaint: Wound/Laceration Stated complaint: Cellulitis Time Seen by Provider: 05/17/25 00:19 Source: patient Mode of arrival: ambulatory Limitations: no limitations History of Present Illness ED Provider: HPI narrative: Patient apparently was working in the yd got stung by multiple bee yesterday in the right forearm now comes here because redness has increased covering the whole forearm patient took Benadryl and 3rd leg without much relief Related Data Home Medications ?Medication ?Instructions ?Recorded ?Confirmed clobetasol 0.05 % topical spray spray topical PRN 05/0 07/1103/24/25 Previous Rx's ?Medication ?Instructions ?Recorded erythromycin 5 mg/gram (0.5 %) eye 0.5 inch ophthalmic (eye) TID 7 03/24/25 ointment days #3.5 grams cephalexin 500 mg capsule 500 mg PO QID 10 days #40 ca ps 05/17/25 Allergies Allergy/AdvReac Type Severity Reaction Status Date / Time doxycycline Allergy Hives Verified 05/16/25 23:57 Review of Systems Review of Systems: Yes all other systems are reviewed and are negative [facility] Past Medical History Medical History Basal cell carcinoma, face Anxiety Psoriasis Surgical History Status post Mohs surgery for basal cell carcinoma History of right cataract surgery (~2017) Family History Family History Daughter Substance abuse Mother Active asthma Father Diabetes Social History Social History Housing: House Alcohol intake: current Alcohol intake frequency: does not drink Patient Tobacco Use Status: Former Tobacco user Smoked in Last 30 Days: No e-Cigarette/Vaping Use: Never Used Second Hand Smoke Exposure: Yes Use of substances other than those prescribed or required for medical reasons: No Advance Directives: No Advance Directives Information Provided: Yes Do you have a plan to hurt others: No Plan service: No Current occupational status: employed Cognitive needs: No Hearing needs: No Vision needs: Yes Physical Exam Vital Signs: Vital Signs: Last Vital Signs Temp 97.9 F 05/17/25 00:46 Pulse 78 05/17/25 00:46 Resp 16 05/17/25 00:46 BP 112/43 L 05/17/25 00:46 Pulse Ox 98 05/17/25 00:46 O2 Del Method Room Air 05/17/25 00:46 BMI result Body Mass Index 24.4 Appearance: Alert. Oriented X3. No acute distress. Eyes: no pallor or icterus ENT: Pharynx normal Oral Mucosa moist tympanic membrane intact no erythema, Neck: Normal inspection. Neck supple. CVS: Normal heart rate and rhythm. Pulses normal. Respiratory: No respiratory distress. Equal air entry bilateral, no wheezing/rales/rhonchi Abd: soft, not tender Skin: Skin warm and dry. Normal skin color. Normal skin turgor. Extremities: Right forarm with cellulitic changes no abscess Neuro: Oriented X 3. Medications Administered Discontinued Medications Generic Name Dose Route Start Last Admin Trade Name Freq PRN Reason Stop Dose Admin Cephalexin HCl 500 mg 05/17/25 00:35 05/17/25 00:44 Cephalexin 500 Mg Capsule PO 05/17/25 00:36 500 mg ONCE ONE Administration Dexamethasone 10 mg 05/17/25 00:35 05/17/25 00:44 Dexamethasone 2 Mg Tablet PO 05/17/25 00:36 10 mg ONCE ONE Administration Medical Decision Making Medical Decision Making [facility] Narrative: Patient has cellulitis from bee sting will prescribe cephalexin patient is allergic to doxycycline Discharge Plan Discharge Clinical Impression: Infected insect bite of forearm Patient Disposition: Home, Self-Care Instructions: Cellulitis (ED) Additional Instructions: Take antibiotic as prescribed Keep your right arm elevated Report to the ER/PCP if worsening of the rash Prescriptions: New cephalexin 500 mg capsule 500 mg PO QID 10 Days Qty: 40 0RF No Action clobetasol 0.05 % spray,non-aerosol topical PRN erythromycin 5 mg/gram (0.5 %) ointment 0.5 inch ophthalmic (eye) TID 7 Days Qty: 3.5 0RF Interventions: ED Discharge Assessment Last Done: 05/17/25 00:46 Discharge Date/Time: 05/17/25 00:46 Print Language: Austrian
[2025-05-17 00:46] VITALS: BP 112/43; PULSE 78; RESP 16; TEMP 36.6; O2SAT 98
== END 2025-05-17 00:46 | disposition home or self-care (01) ==
PROVIDERS: Emergency Provider Internal Medicine; PCP Internal Medicine
DX: L03.113 Cellulitis of right upper limb (principal); Z79.899 Other long term (current) drug therapy
CPT/HCPCS: 99283; 99284; J8540

== ENCOUNTER 2025-08-03 14:17 | Outpatient (REF) | payer OTHER, SELFPAY ==
--- OUTSIDE RECORDS SUMMARY | 2025-08-03 18:03 | XMS_ITS | Patient Health Record ---
Author Organization [facility] Lee Address [address] [place] [address] Care Team Providers Care Sammying Machine Operator Name Role Phone Otf RAY, [facility] Primary [facility] All Bautista Unavailable [phone] Reason For Referral No Information Medications Medication SIG (Take, Route, Fr equency, Duration) Notes Start Date End Date Status Lamisil 250 250 MG 1 Tab Oral Daily; Duration: 90 03/23/2012 Active Ciclopirox 0.77% as directed applied topically twice a day; Duration: until resolved 7-14 days Active Problems Problem Type SNOMED Code ICD Code Onset Dates Problem Status W/U Status Risk Notes Problem Verruca plantaris (03599534) Verruca Plantaris (078.19) Active confirmed Problem Onychomycosis (130006388) Onychomycosis (110.1) Active confirmed Problem Pain in limb (93896643) Pain in Limb (729.5) Active confirmed Problem Tinea pedis (0015226) Tinea Pedis (110.4) Active confirmed Plan Of Treatment Pending Test Test Name Order Date *Liver Function Test (LFT) 03/23/2012 [id number] Destruction, 1-14 03/23/2012 Insurance Providers Payer Name Payer Address Payer Phone Subscriber Number Group Number Insured Name Patient Relationship to Insured Coverage Start Date Coverage End Date [employer] Benefits [address] [address] [place] [address] [phone] [id number] Johana Beckman Self - patient is the insured
== END 2025-08-03 14:18 | disposition home or self-care (01) ==
LOC: HO.MAMMO 14:17
PROVIDERS: PCP Internal Medicine; Visit Provider Internal Medicine
DX: Z12.31 Encounter for screening mammogram for malignant neoplasm of breast (principal)
CPT/HCPCS: 77063; 77067

== ENCOUNTER → 2025-08-03 14:30 | Outpatient (BNV) | payer OTHER, SELFPAY | PROVIDERS: PCP Internal Medicine; Visit Provider Internal Medicine | DX: Z12.31 Encounter for screening mammogram for malignant neoplasm of breast (principal) | CPT/HCPCS: 77063; 77067 ==

== ENCOUNTER 2025-09-05 08:06 | Outpatient (REF) | payer OTHER, SELFPAY ==
--- OUTSIDE RECORDS SUMMARY | 2025-09-05 08:10 | XMS_ITS | Patient Health Record ---
Author Organization [facility]ucho Crossley Address [address] [place] [address] Care Team Providers Care Classer Name Role Phone Otf [facility], [facility] All Graham Unavailable [phone] Reason For Referral No Information Medications Medication [...] W/U Status Risk Notes Problem Verruca plantaris (21567524) Verruca Plantaris (078.19) Active confirmed Problem Onychomycosis (740656049) Onychomycosis (110.1) Active confirmed Problem Pain in limb (48444111) Pain in Limb (729.5) Active confirmed Problem Tinea pedis (1126040) Tinea Pedis (110.4) Active confirmed Plan Of Treatment Pending Test Test Name Order Date *Liver Function Test (LFT) 03/23/2012 [id number] Destruction, 1-14 03/23/2012 Insurance Providers Payer Name Payer Address Payer Phone Subscriber Number Group Number Insured Name Patient Relationship to Insured Coverage Start Date Coverage End Date Blue Benefits [address] [address] [place] [address] [id number] Johana Beckman Self - patient is the insured
[2025-09-05 08:17] LABS: MANUAL DIFF FLAG NO
[2025-09-05 08:53] LABS: Hematocrit 41.7 % (37.0-47.0); Hemoglobin 13.2 g/dl (12.0-16.0); Imm Gran Abs Auto 0.02 X10*3/uL (0.00-0.03); Imm Gran Pct Auto 0.3 % (0.0-0.4); Lymphocytes Absolute Auto 1.2 X10*3/uL (1.2-4.9); Mean Corpuscular HGB Conc 31.7 g/dl (31.0-35.0); Mean Corpuscular Hemoglobin 27.7 pg (27.0-33.0); Mean Corpuscular Volume 87.4 fL (80.0-98.0); NRBC Abs Auto 0.000 X10*3/uL (0.0-0.012); NRBC Pct Auto 0.0 /100WBC (0.0-0.2); Platelet Count 250 X10*3/uL (160-400); Red Blood Count 4.77 X10*6/uL (4.20-5.50); White Blood Count 6.1 X10*3/uL (4.8-10.8)
[2025-09-05 09:23] LABS: Alanine Aminotransferase 19 U/L (0-31); Albumin Level 4.5 g/dL (3.5-5.0); Alkaline Phosphatase 59 U/L (39-117); Anion Gap 13 (12-20); Aspartate Amino Transferase 18 U/L (5-31); Blood Urea Nitrogen 10 mg/dL (9-16); Calcium 9.4 mg/dL (8.4-10.2); Carbon Dioxide 27 mmol/L (22-29); Chloride 106 mmol/L (96-108); Cholesterol 193 mg/dL (<200); Estimated Glomerular Filt Rate > 60; HDL Cholesterol 51 mg/dL (>40); Potassium 4.1 mmol/L (3.3-5.1); Sodium 142 mmol/L (135-145); Total Protein 7.0 g/dL (6.5-8.0); Triglycerides 71 mg/dL (<150)
[2025-09-05 12:30] LABS: Appearance Urine Clear; Glucose Urine UA Negative (Negative); PH 6.0 (5.0-9.0); Specific Gravity - Urine 1.010 (1.005-1.025); UMIC TRIGGER UACC YES
[2025-09-05 12:45] LABS: UACC Culture Trigger YES
== END 2025-09-05 08:07 | disposition home or self-care (01) ==
LOC: HO.LAB 08:06
PROVIDERS: Internal Medicine; PCP Physician Assistant; Visit Provider Physician Assistant
DX: Z00.00 Encounter for general adult medical examination without abnormal findings (principal); E78.00 Pure hypercholesterolemia, unspecified; E55.9 Vitamin D deficiency, unspecified; D64.9 Anemia, unspecified
CPT/HCPCS: 36415; 80053; 80061; 81001; 82306; 84443; 85025; 87086; 87147

== ENCOUNTER 2025-10-06 07:22 | Outpatient (REF) | payer OTHER, SELFPAY ==
--- OUTSIDE RECORDS SUMMARY | 2025-10-06 07:25 | XMS_ITS | Patient Health Record ---
Author Organization [facility] Chucho Crossley Address [address] [place] [address] Care Team Providers Care Build And Release Manager Name Role Phone Ot[facility] All Graham Unavailable [phone] Reason For Referral No Information Medications Medication [...] W/U Status Risk Notes Problem Verruca plantaris (59394263) Verruca Plantaris (078.19) Active confirmed Problem Onychomycosis (194267489) Onychomycosis (110.1) Active confirmed Problem Pain in limb (52036320) Pain in Limb (729.5) Active confirmed Problem Tinea pedis (7120127) Tinea Pedis (110.4) Active confirmed Plan Of Treatment Pending Test Test Name Order Date *Liver Function Test (LFT) 03/23/2012 [id number] Destruction, 1-14 03/23/2012 Insurance Providers Payer Name Payer Address Payer Phone Subscriber Number Group Number Insured Name Patient Relationship to Insured Coverage Start Date Coverage End Date Blue Benefits [address] [address] [place] [address] [phone] [id number] Johana Lazo Self - patient is the insured
[2025-10-06 07:58] LABS: Appearance Urine Clear; Glucose Urine UA 100 mg/dL (Negative); PH 5.0 (5.0-9.0); Specific Gravity - Urine 1.015 (1.005-1.025); UMIC TRIGGER UACC YES
[2025-10-06 08:03] LABS: UACC Culture Trigger YES
== END 2025-10-06 07:23 | disposition home or self-care (01) ==
LOC: HO.LAB 07:22
PROVIDERS: PCP Internal Medicine; Visit Provider Physician Assistant
DX: Z00.00 Encounter for general adult medical examination without abnormal findings (principal); R30.0 Dysuria
CPT/HCPCS: 81001; 87086